=== PATIENT | female | born 2000 | race Caucasian/White ===

== ENCOUNTER 2018-06-08 20:22 | Emergency (ER) | payer OTHER ==
--- NOTE | 2018-06-08 20:38 | EDPHY ---
H & P Stated Complaint: peanut allergy feels SOB poss ate peanut Time Seen by Provider: 06/08/18 20:38 - Personal History LMP (Females 10-55): 1-7 Days Ago Current Tetanus/Diphtheria Vaccine: Yes Current Tetanus Diphtheria and Acellular Pertussis (TDAP): Yes - Medical/Surgical History Hx Asthma: No Hx Chronic Respiratory Disease: No Hx Diabetes: No Hx Cardiac Disease: No Hx Renal Disease: No Hx Cirrhosis: No Hx Alcoholism: No Hx HIV/AIDS: No Hx Splenectomy or Spleen Trauma: No Other PMH: denies - Social History Smoking Status: Never smoked Constitutional: Initial Vital Signs Temperature (C) 37.3 C 06/08/18 20:24 Heart Rate 73 06/08/18 20:24 Respiratory Rate 16 06/08/18 20:24 Blood Pressure 105/79 06/08/18 20:24 O2 Sat (%) 96 06/08/18 20:24 O2 Delivery Mode Room Air Allergies/Adverse Reactions: tree nut [Nuts] Allergy (Verified 06/08/18 20:26) Home Medications: Medication Instructions Recorded Birthcontrol 06/08/18 Epipen Kit 06/08/18 Medical Decision Making ED Course/Re-evaluation: CHIEF COMPLAINT: HISTORY OF PRESENT ILLNESS: must have 4 elements: Location, Quality, Severity , Duration, Timing, Context, Modifying Factors, Associated Signs and Symptoms REVIEW OF SYSTEMS: A comprehensive 10 system review of systems is otherwise negative aside from elements mentioned in the history of present illness and medical decision making. PHYSICAL EXAM: HR, BP, O2 Sat, RR. Temp noted General Appearance: Alert, well hydrated, appropriate, and non-toxic appearing. Head: Atraumatic without scalp tenderness or obvious injury Eyes: Pupils equal, round, reactive to light and accommodation, EOMI, no trauma , no injection. Ears: Clear bilaterally, no perforation, normal landmarks Nose: Atraumatic, no rhinorrhea, clear. Throat: There is no erythema or exudates, no lesions, normal tonsils, mucus membranes moist. Neck: Supple, 2+ carotid upstroke, nontender, no lymphadenopathy. Respiratory: No retractions, no distress, no wheezes, and no accessory muscle use. Lungs are clear to auscultation bilaterally. Cardiovascular: Regular rate and rhythm, no murmurs, rubs, or gallops. Bilateral carotid, radial, dorsalis pedis, and posterior tibial pulses intact. Good capillary refill all extremities. Gastrointestinal: Abdomen is soft, nontender, non-distended, no masses, no rebound, no guarding, no peritoneal signs. Musculoskeletal: Normal active ROM of all extremities, atraumatic. Neurological: Alert, appropriate, and interactive. The patient has normal DTRs and non-focal cranial nerves, motor, sensory, and cerebellar exam. Skin: No rashes, good turgor, no nodules on palpation. Past medical history: Past surgical history: Family history: Social history: DIAGNOSTICS/PROCEDURES/CRITICAL CARE TIME: DIFFERENTIAL DIAGNOSIS: MEDICAL DECISION MAKING: Departure - Departure Condition: Good Referrals: DELMER MENDOZA [Other] - As per Instructions
[2018-06-08] MEDS ORDERED: predniSONE 20 MG TAB PO ONE (20:40)
[2018-06-08] MEDS ORDERED: IPRATROPIUM/ALBUTEROL 3 ML DEYVIAL IH ONE (20:41)
[2018-06-08] MEDS ORDERED: predniSONE 20 MG TAB ONE (20:58)
--- NOTE | 2018-06-08 21:23 | EDPHY ---
H & P Stated Complaint: peanut allergy feels SOB poss ate peanut Time Seen by Provider: 06/08/18 20:38 HPI/ROS: Chief complaint: Possible allergic reaction History of present illness: This is a 17-year-old female concerned she may be having an allergic reaction. 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 At the dining andres this evening she may have eaten food that was exposed to peanuts. She has noticed a rash on her neck and face. She reports some trouble breathing. However, she does reports she has had mild cold symptoms recently. When she gets a cold she usually and starts to wheeze and needs to use inhaler. She currently has not had alert home. She denies other associated signs or symptoms. Review of systems: A 10 point review of systems was obtained and other than described above was negative. - Personal History LMP (Females 10-55): 1-7 Days Ago Current Tetanus/Diphtheria Vaccine: Yes Current Tetanus Diphtheria and Acellular Pertussis (TDAP): Yes - Medical/Surgical History Hx Asthma: No Hx Chronic Respiratory Disease: No Hx Diabetes: No Hx Cardiac Disease: No Hx Renal Disease: No Hx Cirrhosis: No Hx Alcoholism: No Hx HIV/AIDS: No Hx Splenectomy or Spleen Trauma: No Other PMH: denies - Social History Smoking Status: Never smoked - Physical Exam Exam: General Appearance: Alert, no distress. Eyes: Pupils equal and round no pallor or injection. ENT, Mouth: Mucous membranes moist. No angioedema. Respiratory: Diffuse expiratory wheezing. No rhonchi or rales. Cardiovascular: Regular rate and rhythm. Neurological: Alert and oriented x4. Skin: Mild erythematous rash to the neck and face. Musculoskeletal: Neck is supple non tender. Extremities are symmetrical, full range of motion. Psychiatric: Patient is oriented X 3, there is no agitation. Constitutional: Initial Vital Signs Temperature (C) 37.3 C 06/08/18 20:24 Heart Rate 73 06/08/18 20:24 Respiratory Rate 16 06/08/18 20:24 Blood Pressure 105/79 06/08/18 20:24 O2 Sat (%) 96 06/08/18 20:24 O2 Delivery Mode Room Air Allergies/Adverse Reactions: tree nut [Nuts] Allergy (Verified 06/08/18 20:26) Home Medications: Medication Instructions Recorded Birthcontrol 06/08/18 Epipen Kit 06/08/18 predniSONE 40 mg PO DAILY 4 Days tablet 06/08/18 Medical Decision Making ED Course/Re-evaluation: Patient seen under the supervision of my secondary supervising physician Dr. Natalio Sosa. Patient presents to the emergency department concerned she is having allergic reaction. No evidence of angioedema. She is given prednisone 60 mg orally. She is already taking 50 mg of Benadryl orally. She does appear to have mild cold symptoms with a degree of reactive airway disease. She is given a nebulizer. On re-evaluation she is feeling much better. She will be discharged home on prednisone. She is to continue Benadryl. She has an inhaler at home. She is to continue caring her epi pens. She is to follow up with primary care doctor for recheck. Strict return precautions are given. Differential Diagnosis: Included but not limited to allergic reaction, anaphylaxis, viral syndrome, reactive airway disease - Data Points Medications Given: Discontinued Medications Albuterol/Ipratropium (Duoneb) 3 ml IH EDNOW ONE Stop: 06/08/18 20:42 Last Admin: 06/08/18 20:58 Dose: 3 ml Prednisone (Prednisone) 60 mg PO EDNOW ONE Stop: 06/08/18 20:41 Last Admin: 06/08/18 20:58 Dose: 60 mg Departure - Departure Disposition: Home, Routine, Self-Care Clinical Impression: Allergic reaction Qualifiers: Encounter type: initial encounter Qualified Code(s): T78.40XA - Allergy, unspecified, initial encounter Condition: Good Instructions: Urticaria (ED) Additional Instructions: Follow-up with her primary care doctor in 1-2 days for recheck Continue taking prednisone as directed until finished, your next dose is tomorrow night Use Benadryl 25 mg every 6 hr for the next 3-4 days Use the inhaler every 4-6 hours as needed If symptoms worsen or new symptoms develop return to the emergency room for recheck Referrals: DELMER MENDOZA [Other] - As per Instructions Prescriptions: predniSONE 40 mg PO DAILY 4 Days tablet
[2018-06-08 21:50] VITALS: BP 123/79
== END 2018-06-08 21:40 | disposition home or self-care (01) ==
DX: L50.9 Urticaria, unspecified (principal); T78.01XA Anaphylactic reaction due to peanuts, initial encounter
CPT/HCPCS: J7512